=== PATIENT | male | born 1965 | race Caucasian/White ===

== ENCOUNTER 2016-08-09 04:12 | Emergency (ER) | payer BC ==
--- NOTE | 2016-08-09 04:49 | ED Physician Chart ---
Chief Complaint/HPI - Patient Information Date Seen:: 08/09/16 Time Seen:: 04:44 Chief Complaint:: back pain, ALLISON History of Present Illness:: pt says he has had a ALLISON x 3 days. constant and usually gets when he is dehydrated but today drinking h2o has been no relief. he tried excedrin w no relief. is concerned about the pain is severe. no weak/ numb in limbs. no change in cn. pt is on a monthly rx of ultram but has run out 1week ago. he does not freely volunteer this info until i specificallly ask. also pt c/o a pain in rt low back. hurts to move/bend. pt says pain is the same as in past when his GB was giving him pain. GB had to be stented in past ( he thinks but details are somewhat vague). pt says he was told by [address] that he should have GB removal sx in 12/21 but his pmd disagreed and no sx was done. Pt 's PMD disagreed w sx since there was no evidence of gallstones. no abd pain. no n/v/d. no constipation. no fever. pt has been unable to sleep recently but he's not sure why. had some feeling of hrt was racing earlier tonight. no cp. no sob. no skipping beats or irregular hr. no weakness, no CP. no near syncope. pt drove himself to ED but says his son lives nearby and can come in prn. Allergies:: Allergies Allergy/AdvReac Type Severity Reaction Status Date / Time morphine Allergy HIVES Verified 09/17/15 02:25 Vitals:: Vital Signs - 8 hr 08/09/16 04:20 Temp 98.0 F HR 85 RR 19 BP 159/92 O2 Sat % 96 Historian:: Patient Review of Systems - Review of Systems General/Constitutional: No fever, No chills, No weight loss, No weakness, No diaphoresis, No edema, No loss of appetite Skin: No skin lesions, No rash, No bruising Head: Headache, No light-headedness Eyes: No loss of vision, No pain, No diplopia ENT: No earache, No nasal drainage, No sore throat, No tinnitus Neck: No neck pain, No swelling, No thyromegaly, No stiffness, No mass noted Cardio Vascular: No chest pain, No palpitations, No PND, No orthopnea, No edema Pulmonary: No SOB, No cough, No sputum, No wheezing GI: No nausea, No vomiting, No diarrhea, No pain, No melena, No hematochezia, No constipation, No hematemesis G/U: No dysuria, No frequency, No hematuria Musculoskeletal: No bone or joint pain, No back pain, No muscle pain Endocrine: No polyuria, No polydipsia Psychiatric: No prior psych history, No depression, No anxiety, No suicidal ideation Hematopoietic: No bruising, No lymphadenopathy Allergic/Immuno: No urticaria, No angioedema Neurological: No syncope, No focal symptoms, No weakness, No paresthesia, No headache, No seizure, No dizziness, No confusion, No vertigo Past Medical History - Past Medical History Past Medical History: HTN, Other (gb stent (no stones), diverticulitis w sx hx and prior colonostomy /w reversal) Social History: Non Smoker, No Alcohol Medication: Reviewed Family Medical History - Family Member Mother History Unknown: Yes Physical Exam - Physical Examination General/Constitutional: Awake, Well-developed, well-nourished, Alert, No distress, GCS 15, Non-toxic appearing, Ambulatory Head: Atraumatic Eyes: Lids, conjuctiva normal, PERRL, EOMI Skin: Nl inspection, No rash, No skin lesions, No ecchymosis, Well hydrated, No lymphadenopathy ENMT: External ears, nose nl, TM canals nl, Nasal exam nl, Lips, teeth, gums nl , Oropharynx nl, Tonsils nl Neck: Nontender, Full ROM w/o pain, No JVD, No nuchal rigidity, No bruit, No mass, No stridor Respiratory: Nl effort/Exclusion, Clear to Auscultation, No Wheeze/Rhonchi/Rales Cardio Vascular: RRR, No murmur, gallop, rubs, NL S1 S2 GI: No tenderness/rebounding/guarding, No organomegaly, No hernia, Normal BS's, Nondistended, No mass/bruits, No McBurney tenderness Other GI comments:: nontnd w much diffuse post sx scars (old) : No CVA tenderness Extremities: No tenderness or effusion, Full ROM, normal strength in all extremities, No edema, Normal digits & nails Neuro/Psych: Alert/oriented, DTR's symmetric, Normal sensory exam, Normal motor strength, Judgement/insight normal, Mood normal, Normal gait, No focal deficits Misc: No paraspinal tenderness Other Misc comments:: back tndr low rt side. ok rom. neck supple. no neuro defecits Labs/Radiology/EKG Results - Lab Results Results: Laboratory Tests 08/09/16 08/09/16 08/09/16 04:55 04:55 05:10 WBC 7.0 RBC 5.27 Hgb 15.2 Hct 44.7 MCV 84.8 MCH 28.8 MCHC Differential 33.9 RDW 12.1 Plt Count 286 MPV 6.8 Neutrophils % 65.0 Lymphocytes % 25.5 Monocytes % 7.1 Eosinophils % 1.5 Basophils % 0.9 Sodium Potassium Chloride Carbon Dioxide Anion Gap BUN Creatinine Est GFR ( Amer) Est GFR (Non-Af Amer) BUN/Creatinine Ratio Glucose Calcium Total Bilirubin AST ALT Alkaline Phosphatase Troponin I Total Protein Albumin Globulin Albumin/Globulin Ratio Urine Source CLEAN C Urine Color YELLOW Urine Clarity CLEAR Urine pH 6.0 Ur Specific [place] 1.020 Urine Protein NEGATIVE Urine Glucose (UA) NEGATIVE Urine Ketones NEGATIVE Urine Blood NEGATIVE Urine Nitrate NEGATIVE Urine Bilirubin NEGATIVE Urine Urobilinogen 0.2 Ur Leukocyte Esterase NEGATIVE Urine RBC NONE SEEN Urine WBC NONE SEEN Ur Epithelial Cells NONE SEEN Urine Bacteria FEW Urine Opiates Screen NEGATIVE Urine Methadone Screen NEGATIVE Ur Barbiturates Screen NEGATIVE Ur Tricyclics Screen NEGATIVE Ur Phencyclidine Scrn NEGATIVE Amphetamines Screen NEGATIVE U Methamphetamines Scrn NEGATIVE U Benzodiazepines Scrn NEGATIVE U Cocaine Metab Screen NEGATIVE U Cannabinoids Screen NEGATIVE Ethyl Alcohol 08/09/16 08/09/16 05:10 05:10 WBC RBC Hgb Hct MCV MCH MCHC Differential RDW Plt Count MPV Neutrophils % Lymphocytes % Monocytes % Eosinophils % Basophils % Sodium 136 Potassium 4.0 Chloride 110 H Carbon Dioxide 22.8 Anion Gap 7.2 BUN 14 Creatinine 0.7 Est GFR ( Amer) > 60.0 Est GFR (Non-Af Amer) > 60.0 BUN/Creatinine Ratio 20.0 Glucose 147 H Calcium 9.5 Total Bilirubin 0.4 AST 13 ALT 20 Alkaline Phosphatase 83 Troponin I < 0.01 L Total Protein 7.1 Albumin 4.1 L Globulin 3.0 Albumin/Globulin Ratio 1.4 Urine Source Urine Color Urine Clarity Urine pH Ur Specific [place] Urine Protein Urine Glucose (UA) Urine Ketones Urine Blood Urine Nitrate Urine Bilirubin Urine Urobilinogen Ur Leukocyte Esterase Urine RBC Urine WBC Ur Epithelial Cells Urine Bacteria Urine Opiates Screen Urine Methadone Screen Ur Barbiturates Screen Ur Tricyclics Screen Ur Phencyclidine Scrn Amphetamines Screen U Methamphetamines Scrn U Benzodiazepines Scrn U Cocaine Metab Screen U Cannabinoids Screen Ethyl Alcohol < 10 - Radiology Results Results: ct l-spine no fx. no sublux. no neural foramen encroachment nor spinal stenosis - EKG Interpretations EKG Time:: 04:30 Rate & Rhythm: nsr, wnl [place]: -7 Intervals: nrml st's/t's Comments:: wn ED Septic Shock - . Is Septic Shock (SBP<90, OR Lactate>4 mmol\L) present?: No - <6hrs of presentation: Vital Signs: Vital Signs - 8 hr /06/21 04:20 Temp 98.0 F HR 85 RR 19 BP 159/92 O2 Sat % 96 Reassessment (Disposition) - Reassessment Reassessment:: pt resting comfortably. labs ok. ct L spine is ok but remainder of CTs pending. will sign out to [facility] ED Dr at 7am unless results received by then. Reassessment Condition:: Improved - Diagnosis Diagnosis:: 1 headache 2 back pain - exacerbation of chronic.. - Aftercare/Follow up Instructions Aftercare/Follow-Up Instructions:: Counseled pt regarding lab results/diagnosis & need follow up Notes:: advise pt f/u w dr cardona today for further chronic pain med rx's and advice. return if worse. - Patient Disposition Discharge/Transfer:: Home Condition at Disposition:: Improved
[2016-08-09] MEDS ORDERED: Sodium Chloride 0.9% 1,000 ML IV ONE (04:55)
[2016-08-09] MEDS ORDERED: HYDROmorphone 1 mg/mL 1mL Syr IVP STA (05:09)
[2016-08-09 05:20] LABS: % BASOPHILS 0.9 % (0.0-2.0); % EOSINOPHILS 1.5 % (0.0-5.0); % LYMPHOCYTES 25.5 % (20.0-50.0); % MONOCYTES 7.1 % (2.0-10.0); HEMATOCRIT 44.7 % (39.0-49.0); HEMOGLOBIN 15.2 gm/dL (13.2-17.3); MEAN CELL VOLUME 84.8 fl (80-99); MEAN CORPUSCULAR HEMOGLOBIN 28.8 pg (26.0-30.0); MEAN CORPUSCULAR HGB CONC 33.9 pg (28.0-36.0); MEAN PLATELET VOLUME 6.8 fl; NEUTROPHILE ABSOLUTE 4.5 Th/cmm (1.8-8.0); PLATELET COUNT 286 Th/cmm (150-400); RED BLOOD COUNT 5.27 Mil/cmm (4.30-5.70); RED CELL DISTRIBUTION WIDTH 12.1 % (11.5-20.0)
[2016-08-09 05:32] LABS: URINE BILIRUBIN NEGATIVE (NEGATIVE); URINE BLOOD NEGATIVE (NEGATIVE); URINE COLOR YELLOW; URINE GLUCOSE (UA) NEGATIVE (NEGATIVE); URINE KETONE NEGATIVE (NEGATIVE); URINE PROTEIN NEGATIVE (NEGATIVE); URINE UROBILINOGEN 0.2 E.U./dL (0.2 - 1.0)
[2016-08-09 05:33] LABS: AMPHETAMINE URINE NEGATIVE (NEGATIVE); BARBITURATES URINE NEGATIVE (NEGATIVE); METHADONE URINE NEGATIVE (NEGATIVE); URINE BACTERIA FEW /hpf (NONE SEEN); URINE EPITHELIAL CELLS NONE SEEN /lpf (FEW); URINE RBC NONE SEEN /hpf (0-5); URINE WBC NONE SEEN /hpf (0-5)
[2016-08-09 05:37] LABS: ALB/GLOB RATIO 1.4 (1.0-1.8); ALKALINE PHOSPHATASE 83 U/L (34-104); ANION GAP 7.2 (7.0-16.0); BILIRUBIN,TOTAL 0.4 mg/dL (0.3-1.0); BUN - UREA NITROGEN 14 mg/dL (7-25); CALCIUM SERUM 9.5 mg/dL (8.6-10.3); CARBON DIOXIDE 22.8 mEq/L (21.0-31.0); CHLORIDE 110 mEq/L (98-107); CREATININE - SERUM 0.7 mg/dL (0.7-1.3); GLUCOSE 147 mg/dL (70-105); SGOT 13 U/L (13-39); SGPT/ALT 20 U/L (7-52); SODIUM SERUM 136 mEq/L (136-145)
--- NOTE | 2016-08-09 10:27 | Diagnostic Imaging Report ---
Head CT without intravenous contrast Indication: Headache for 3 days Comparison: None Technique: Axial images were obtained from the vertex to the skull base without IV contrast. Coronal reconstructions were made. Total DLP: 725, CTDI38 FINDINGS: Images of the brain obtained without contrast demonstrate no acute hemorrhage. No mass lesions identified. The ventricles and basal cisterns are patent. The gordon-white matter differentiation is preserved. There is no mass effect or midline shift. No skull fractures identified. No soft tissue swelling. The paranasal sinuses are clear. IMPRESSION: No acute intracranial abnormality.
--- NOTE | 2016-08-09 10:31 | Diagnostic Imaging Report ---
CT lumbar spine without IV contrast HISTORY: Back pain COMPARISON: CT lumbar spine on 09/03/[address] abdomen and pelvis was performed in multiple planes. Total DLP 959, CTD I 38.7 Findings: Images of the lumbar spine obtained without contrast demonstrate no evidence of an acute fracture or subluxation. Rudimentary ribs are seen at L1. Mild degenerative changes are noted. There is a 3 mm protrusion at L5/S1 asymmetric to the left causing mild left spinal canal and mild left neural foraminal narrowing and touching the adjacent nerve roots. There is a 2 to 3 mm broad-based disc bulge at L4/L5 causing mild spinal canal narrowing. Degenerative changes of SI joints are noted. IMPRESSION: No evidence of an acute fracture or subluxation Degenerative changes greatest in the lower lumbar spine with a 3 mm asymmetric leftward protrusion at L5/S1 indenting the thecal sac and causing mild left spinal canal and left neural foraminal narrowing. If indicated short-term follow-up MRI may also be obtained for further assessment.
--- NOTE | 2016-08-09 11:02 | Diagnostic Imaging Report ---
CT abdomen and pelvis without intravenous contrast Indication: Abdominal pain] and back pain Comparison: CT lumbar spine performed the same day, Technique: Axial images were obtained from the lung bases to the bilateral proximal femurs without IV contrast. Coronal reconstructions were made. total DLP: 681, CTDI14.3 FINDINGS: Exam is limited due to motion. Atelectatic changes of the lung bases are seen. Subcentimeter low-density lesions of the liver are noted, too small to characterize. There is elevation of right hemidiaphragm. No radiopaque gallstones identified. No focal splenic lesions. Pancreatic gland atrophy is noted with no evidence of focal lesions. No focal adrenal lesions. No evidence of hydronephrosis or focal renal lesions. Mild nonspecific perinephric inflammatory changes are noted. Punctate prostate gland calcifications are noted. Copious stool is seen throughout the colon. There is evidence of previous anterior abdominal wall mesh hernia repair. There is diastases of the rectus abdominal muscles inferior to the mesh with close apposition of bowel loops along the anterior bowel wall. There is a focal small narrow based ventral hernia just to the left of the mesh containing small bowel without evidence of obstruction or strangulation at this time. There are also additional 2 focal small ventral hernias with partially herniated loops of small bowel to the right of the ventral hernia one adjacent and one inferior to the ventral hernia. No appendicitis. No evidence of free fluid or free air. Postsurgical changes of the left colon are noted. Mild degenerative changes spine are noted. IMPRESSION: Evidence of previous anterior abdominal wall mesh repair. There is generalized diastases of the rectus abdominis muscles. There is a focal narrow base hernia seen to the left of the ventral hernia containing small bowel loop without evidence of obstruction at this time, however, follow-up is recommended. There are also 2 additional focal ventral hernias with partial herniation of bowel loops one located just to the right of the mesh and one located inferior and to the right of the mesh with partial herniation of bowel loops without evidence of obstruction at this time. Copious stool throughout the colon with posterior surgical changes of the descending colon. No evidence of hydronephrosis
== END 2016-08-09 07:15 | disposition home or self-care (01) ==
LOC: ER 04:12
DX: R51 Headache (principal); M54.5 Low back pain; I10 Essential (primary) hypertension; Z88.6 Allergy status to analgesic agent
CPT/HCPCS: 36415-UA; 70450-TC; 72131-TC; 80053-TC; 80307; 80320-TC; 81001-TC; 84484-TC; 85025-TC; 93005; 96374; 96375; J1170; J2405; J7030

== ENCOUNTER 2017-05-25 15:55 | Emergency (ER) | payer BC ==
[2017-05-25] MEDS ORDERED: metroNIDAZOLE 500mg/NS 100mL 500 MG/100 ML BAG IV ONE ×2 (16:15→16:40)
[2017-05-25 16:29] LABS: % BASOPHILS 1.1 % (0.0-2.0); % EOSINOPHILS 1.2 % (0.0-5.0); % LYMPHOCYTES 23.2 % (20.0-50.0); % MONOCYTES 6.7 % (2.0-10.0); % NEUTROPHILS 67.8 % (40.0-80.0); BASOPHILE ABSOLUTE 0.1 Th/cumm (0-0.2); EOSINOPHILE ABSOLUTE 0.1 Th/cmm (0.1-0.4); HEMATOCRIT 41.3 % (41.0-60); HEMOGLOBIN 14.2 gm/dL (12-16); LYMPHOCYTE ABSOLUTE 1.8 Th/cmm (1.5-3.0); MEAN CELL VOLUME 82.9 fl (80-99); MEAN CORPUSCULAR HEMOGLOBIN 28.5 pg (26.0-30.0); MEAN CORPUSCULAR HGB CONC 34.3 pg (28.0-36.0); MEAN PLATELET VOLUME 6.5 fl; MONOCYTE ABSOLUTE 0.5 Th/cmm (0.3-1.0); NEUTROPHILE ABSOLUTE 5.2 Th/cmm (1.8-8.0); PLATELET COUNT 327 Th/cmm (150-400); RED BLOOD COUNT 4.99 Mil/cmm (4.30-5.70); RED CELL DISTRIBUTION WIDTH 12.2 % (11.5-20.0); WHITE BLOOD COUNT 7.7 Th/cmm (4.8-10.8)
[2017-05-25 16:37] LABS: ALB/GLOB RATIO 1.6 (1.0-1.8); ALBUMIN 4.4 gm/dL (4.2-5.5); ALKALINE PHOSPHATASE 68 U/L (34-104); ANION GAP 10.8 (7.0-16.0); BILIRUBIN,TOTAL 0.5 mg/dL (0.3-1.0); BUN - UREA NITROGEN 14 mg/dL (7-25); CALCIUM SERUM 9.3 mg/dL (8.6-10.3); CARBON DIOXIDE 24.9 mEq/L (21.0-31.0); CHLORIDE 104 mEq/L (98-107); CREATININE - SERUM 0.7 mg/dL (0.7-1.3); GFR AFRICAN-AMERICAN > 60.0 ml/min (>90); GFR NON AFRICAN-AMERICAN > 60.0 ml/min; GLUCOSE 130 mg/dL (70-105); POTASSIUM SERUM 3.7 mEq/L (3.5-5.1); SGOT 17 U/L (13-39); SGPT/ALT 22 U/L (7-52); SODIUM SERUM 136 mEq/L (136-145); TOTAL PROTEIN,SERUM 7.2 gm/dL (6.0-8.3)
[2017-05-25 16:44] LABS: CHOLESTEROL 144 mg/dL (<200); HDL -HIGH DENSITY LIPOPROTEIN 26 mg/dL (23-92); TRIGLYCERIDES 333 mg/dL (<150)
[2017-05-25] MEDS ORDERED: cefTRIAXone 1 GM in Sodium Chloride 0.9% 50 ML IV ONE (16:45)
--- NOTE | 2017-05-25 17:57 | ER Physician Documentation ---
DATE OF SERVICE: 05/25/2017 EMERGENCY ROOM EVALUATION AND TREATMENT The patient states that he started having rectal pain since this morning. He came to the Emergency Room, was placed on bed #3. Triage was done by Lucio. The patient states that he has this pain until now. He went to his doctor, the doctor sent him over here to be checked it out. The patient does not have any hemorrhoids. No bleeding problems. The patient has a history of diverticulitis. HISTORY OF PRESENT ILLNESS: The patient is known to have diverticulitis and now he said he had some pain on the left side of the colonic area also and now it went down to the colonic area also. He is single, but he has 4 children. The patient does not have any other symptoms. No nausea or vomiting. No other medical problems. No bleeding, no vomiting of blood. REVIEW OF SYSTEMS: EYES: No history of double vision, blurring, blindness. CENTRAL NERVOUS SYSTEM: No history of TIA, stroke, encephalitis, meningitis. PULMONARY: No history of pneumonia, TB pulmonary embolism. CARDIAC: No history of any chest pain, myocardial infarction, rheumatic fever. The patient is moderately obese patient. Weighing 210 pounds. A 12-point review of systems was reviewed and essentially normal, negative costovertebral angles, no pain. Abdomen sweet, the patient has no nausea or vomiting. No history of GERD. No history of taking any alcoholic beverages, not taking any medications of any drugs that he takes. He has a history of diverticulitis. He was operated once many years ago for diverticulitis. Review of systems essentially, that I mentioned earlier there earlier, lung sweet, the patient has no pneumonia, TB, pulmonary embolism. Heart sweet, no history of any angina pectoris, myocardial infarction, rheumatic fever, valvular heart disease, pericardial disease. Abdomen sweet, no history of any GI problems other than diverticulitis. No history of any Crohn's disease. The patient is a single. The patient has 4 sons. Two of them live with him. The patient's costovertebral angle essentially seems to be within normal limits. PHYSICAL EXAMINATION: VITAL SIGNS: Temperature of 98.3, pulse of 83, respirations 16, blood pressure 148/84, saturations 95. Height is 5 feet 7 inches, weight 210 pounds. The patient is up-to-date with his tetanus and other drugs. The patient's height is 5 feet 7 inches, weighing 210 pounds. Temperature 98.8, pulse 83. So, a 12-point review of system is essentially negative. GENERAL EXAM: Is otherwise benign and negative. CHEST: Clear. Trachea being central. Fairly good air entry in both lungs. HEART: Reveals normal heart sounds. No fourth heart sounds. Second heart sounds physiologically split. Third heart sound is absent. ABDOMEN: Soft, benign and negative. CENTRAL NERVOUS SYSTEM: Within normal limits. CLINICAL IMPRESSION: Most likely the patient may be having some diverticulitis or it maybe affecting some part of the rectal area, so the patient will be given some Flagyl, Toradol and patient will be given Rocephin and some lab workup would be done. The patient has been taking [place]; on an average he takes 10 pills a week and he has been taking this for quite some time. He is allergic to MORPHINE and Dilaudid is not available, most likely he may be wanting to get some [place] today on Sunday and it is very, very likely that he may be addicted to [place]. But we will check lab work. The patient will be given Flagyl. The patient is given some dose of Toradol and Rocephin and labs is done. Once everything is available the patient most likely will be sent home. JOB# [id number]
--- NOTE | 2017-05-25 17:57 | ER Physician Documentation ---
DATE OF SERVICE: ADDENDUM A 51-year-old male patient. Full code patient. LABORATORY DATA: White count is 7.7, hemoglobin is 14.2. The patient seems to be a little better. Platelet count is 327,000. Electrolytes, etc. appears to be normal. Potassium is 3.7, BUN is 14, creatinine 0.7, glucose is 130 and that is a random sample. AST, ALT are essentially within normal limits. Triglycerides is 333, that is a little high. We will advise him to eat low fat diet and then to check up his cholesterol in about a month's time and then if it is high, the patient may need some medication to bring the cholesterol level down. LDL is 87, HDL is 26. FINAL DIAGNOSES: Abdominal pain, rectal pain, possible diverticulitis, may be some kind of colitis, also affecting down the rectal anal area. The patient is sent home on Flagyl 500 mg 3 times a day for 5 days, Keflex 500 mg p.o. 4 times a day for 5 days . No other medication needs to be taken. The patient is to take low cholesterol, low saturated fat diet. In a month's time, repeat checking of triglycerides need to be done. He is overweight. His weight is 210. He has to come down to 200 and then check up the lipid profile level and then depending on that, the medication Tricor might be needing to be given 145 mg once a day. JOB# [id number]
== END 2017-05-25 17:35 | disposition home or self-care (01) ==
LOC: ER 15:55
DX: K62.89 Other specified diseases of anus and rectum (principal)
CPT/HCPCS: 99284; 96365; 96368; 96372; 84484; 36415; 85025; 83735; 80053; 80061; J1885; J0696; 90799; Z7502

== ENCOUNTER 2018-05-25 01:02 | Emergency (ER) | payer BC ==
[2018-05-25] MEDS ORDERED: Sodium Chloride 0.9% 1,000 ML IV ONE (01:57)
[2018-05-25] MEDS ORDERED: HYDROmorphone 1 mg/mL 1mL Syr IVP STA ×2 (01:58→05:00)
--- NOTE | 2018-05-25 02:07 | ED Physician Chart ---
ED Chief Complaint/HPI - Patient Information Date Seen:: 05/25/18 Time Seen:: 01:50 Chief Complaint:: diffuse abdominal pain History of Present Illness:: Patient developed diffuse abdominal pain at 8 PM last night. He is nauseated and vomited once in the waiting room. No diarrhea. Allergies:: Allergies Allergy/AdvReac Type Severity Reaction Status Date / Time morphine Allergy HIVES Verified 09/17/15 02:25 Vitals:: Vital Signs - 8 hr 05/25/18 01:11 Temp 97.8 F HR 75 RR 17 BP 143/85 O2 Sat % 98 Historian:: Patient Review:: Nurse's Note Reviewed ED Review of Systems - Review of Systems General/Constitutional: No fever, No chills, No weight loss, No weakness, No diaphoresis, No edema, No loss of appetite Skin: No skin lesions, No rash, No bruising Head: No headache, No light-headedness Eyes: No loss of vision, No pain, No diplopia ENT: No earache, No nasal drainage, No sore throat, No tinnitus Neck: No neck pain, No swelling, No thyromegaly, No stiffness, No mass noted Cardio Vascular: No chest pain, No palpitations, No PND, No orthopnea, No edema Pulmonary: No SOB, No cough, No sputum, No wheezing GI: Nausea, Vomiting, No diarrhea, Pain, No melena, No hematochezia, No constipation, No hematemesis G/U: No dysuria, No frequency, No hematuria Musculoskeletal: No bone or joint pain, No back pain, No muscle pain Endocrine: No polyuria, No polydipsia Psychiatric: No prior psych history, No depression, No anxiety, No suicidal ideation Hematopoietic: No bruising, No lymphadenopathy Allergic/Immuno: No urticaria, No angioedema Neurological: No syncope, No focal symptoms, No weakness, No paresthesia, No headache, No seizure, No dizziness, No confusion, No vertigo ED Past Medical History - Past Medical History Past Medical History: Other (diverticulitis) Family History: None Social History: Non Smoker, No Alcohol Surgical History: other (patient had a colostomy for diverticulitis in 2010 with a colostomy reversal; ventral hernia repair) Psychiatricy History: None Medication: Reviewed Family Medical History - Family Member Mother History Unknown: Yes ED Physical Exam - Physical Examination General/Constitutional: Well-developed, well-nourished, Alert Other Gen/Cons comments:: Mild to moderate distress Head: Atraumatic Eyes: Lids, conjuctiva normal, PERRL Skin: Nl inspection, No rash, No skin lesions, No ecchymosis ENMT: External ears, nose nl, Lips, teeth, gums nl Neck: No nuchal rigidity Respiratory: Nl effort/Exclusion, Clear to Auscultation, No Wheeze/Rhonchi/Rales Cardio Vascular: RRR GI: No mass/bruits Other GI comments:: Bowel sounds decreased; there is diffuse abdominal tenderness with rebound tenderness Extremities: Normal digits & nails Neuro/Psych: No focal deficits ED Labs/Radiology/EKG Results - Lab Results Results: Laboratory Results WBC 10.9 Th/cmm (4.8-10.8) H 05/25/18 02:05 RBC 5.38 Mil/cmm (4.30-5.70) 05/25/18 02:05 Hgb 15.6 gm/dL (12-16) 05/25/18 02:05 Hct 46.2 % (41.0-60) 05/25/18 02:05 MCV 86.0 fl (80-99) 05/25/18 02:05 MCH 29.0 pg (26.0-30.0) 05/25/18 02:05 MCHC Differential 33.8 pg (28.0-36.0) 05/25/18 02:05 RDW 12.6 % (11.5-20.0) 05/25/18 02:05 Plt Count 316 Th/cmm (150-400) 05/25/18 02:05 MPV 6.4 fl 05/25/18 02:05 Neutrophils % 79.2 % (40.0-80.0) 05/25/18 02:05 Lymphocytes % 15.2 % (20.0-50.0) L 05/25/18 02:05 Monocytes % 4.6 % (2.0-10.0) 05/25/18 02:05 Eosinophils % 0.8 % (0.0-5.0) 05/25/18 02:05 Basophils % 0.2 % (0.0-2.0) 05/25/18 02:05 Sodium 134 mEq/L (136-145) L 05/25/18 02:05 Potassium 3.8 mEq/L (3.5-5.1) 05/25/18 02:05 Chloride 100 mEq/L (98-107) 05/25/18 02:05 Carbon Dioxide 21.4 mEq/L (21.0-31.0) 05/25/18 02:05 Anion Gap 16.4 (7.0-16.0) H 05/25/18 02:05 BUN 16 mg/dL (7-25) 05/25/18 02:05 Creatinine 0.7 mg/dL (0.7-1.3) 05/25/18 02:05 Est GFR ( Amer) > 60.0 ml/min (>90) 05/25/18 02:05 Est GFR (Non-Af Amer) > 60.0 ml/min 05/25/18 02:05 BUN/Creatinine Ratio 22.9 05/25/18 02:05 Glucose 143 mg/dL (70-105) H 05/25/18 02:05 Calcium 9.3 mg/dL (8.6-10.3) 05/25/18 02:05 Magnesium 2.0 mg/dL (1.9-2.7) 05/25/18 02:05 Lipase 13 U/L (11-82) 05/25/18 02:05 Urine Source MID[place] 05/25/18 01:15 Urine Color YELLOW 05/25/18 01:15 Urine Clarity CLEAR (CLEAR) 05/25/18 01:15 Urine pH 5.5 (4.6 - 8.0) 05/25/18 01:15 Ur Specific [place] 1.020 (1.005-1.030) 05/25/18 01:15 Urine Protein NEGATIVE mg/dL (NEGATIVE) 05/25/18 01:15 Urine Glucose (UA) NEGATIVE mg/dL (NEGATIVE) 05/25/18 01:15 Urine Ketones NEGATIVE mg/dL (NEGATIVE) 05/25/18 01:15 Urine Blood NEGATIVE (NEGATIVE) 05/25/18 01:15 Urine Nitrate NEGATIVE (NEGATIVE) 05/25/18 01:15 Urine Bilirubin NEGATIVE (NEGATIVE) 05/25/18 01:15 Urine Urobilinogen 0.2 E.U./dL (0.2 - 1.0) 05/25/18 01:15 Ur Leukocyte Esterase NEGATIVE (NEGATIVE) 05/25/18 01:15 Urine RBC NONE SEEN /hpf (0-5) 05/25/18 01:15 Urine WBC 0-2 /hpf (0-5) 05/25/18 01:15 Ur Epithelial Cells NONE SEEN /lpf (FEW) 05/25/18 01:15 Urine Bacteria FEW /hpf (NONE SEEN) 05/25/18 01:15 - Radiology Results Results: CT abdomen and pelvis shows small bowel obstruction - EKG Interpretations Rate & Rhythm: normal sinus rhythm with a rate of 73 [place]: normal ED Septic Shock - . Is Septic Shock (SBP<90, OR Lactate>4 mmol\L) present?: No - <6hrs of presentation: Vital Signs: Vital Signs - 8 hr 05/25/18 01:11 Temp 97.8 F HR 75 RR 17 BP 143/85 O2 Sat % 98 ED Reassessment (Disposition) - Reassessment Reassessment Condition:: Improved - Diagnosis Diagnosis:: Small bowel obstruction - Patient Disposition Discharge/Transfer:: Acute Care (other hosp) Spoke to:: Dr. Merida Condition at Disposition:: Stable, Unchanged
[2018-05-25 02:11] LABS: % BASOPHILS 0.2 % (0.0-2.0); % EOSINOPHILS 0.8 % (0.0-5.0); % LYMPHOCYTES 15.2 % (20.0-50.0); % MONOCYTES 4.6 % (2.0-10.0); % NEUTROPHILS 79.2 % (40.0-80.0); EOSINOPHILE ABSOLUTE 0.1 Th/cmm (0.1-0.4); HEMATOCRIT 46.2 % (41.0-60); HEMOGLOBIN 15.6 gm/dL (12-16); LYMPHOCYTE ABSOLUTE 1.7 Th/cmm (1.5-3.0); MEAN CORPUSCULAR HGB CONC 33.8 pg (28.0-36.0); MEAN PLATELET VOLUME 6.4 fl; MONOCYTE ABSOLUTE 0.5 Th/cmm (0.3-1.0); NEUTROPHILE ABSOLUTE 8.6 Th/cmm (1.8-8.0); PLATELET COUNT 316 Th/cmm (150-400); RED BLOOD COUNT 5.38 Mil/cmm (4.30-5.70); RED CELL DISTRIBUTION WIDTH 12.6 % (11.5-20.0); WHITE BLOOD COUNT 10.9 Th/cmm (4.8-10.8)
[2018-05-25] MEDS ORDERED: HYDROmorphone 1 mg/mL 1mL Syr ONE ×2 (02:19→05:03)
[2018-05-25 02:27] LABS: ANION GAP 16.4 (7.0-16.0); BUN - UREA NITROGEN 16 mg/dL (7-25); CALCIUM SERUM 9.3 mg/dL (8.6-10.3); CARBON DIOXIDE 21.4 mEq/L (21.0-31.0); CHLORIDE 100 mEq/L (98-107); CREATININE - SERUM 0.7 mg/dL (0.7-1.3); GFR AFRICAN-AMERICAN > 60.0 ml/min (>90); GFR NON AFRICAN-AMERICAN > 60.0 ml/min; GLUCOSE 143 mg/dL (70-105); LIPASE 13 U/L (11-82); POTASSIUM SERUM 3.8 mEq/L (3.5-5.1); SODIUM SERUM 134 mEq/L (136-145)
[2018-05-25 02:36] LABS: URINE SOURCE MIDSTREAM
[2018-05-25 02:37] LABS: URINE BILIRUBIN NEGATIVE (NEGATIVE); URINE BLOOD NEGATIVE (NEGATIVE); URINE GLUCOSE (UA) NEGATIVE (NEGATIVE); URINE KETONE NEGATIVE (NEGATIVE); URINE LEUKOCYTE ESTERASE NEGATIVE (NEGATIVE); URINE NITRATE NEGATIVE (NEGATIVE); URINE PH 5.5 (4.6 - 8.0); URINE PROTEIN NEGATIVE (NEGATIVE); URINE UROBILINOGEN 0.2 E.U./dL (0.2 - 1.0)
[2018-05-25 02:52] LABS: URINE BACTERIA FEW /hpf (NONE SEEN); URINE CLARITY CLEAR (CLEAR); URINE COLOR YELLOW; URINE EPITHELIAL CELLS NONE SEEN /lpf (FEW); URINE MICROSCOPIC INDICATED? YES; URINE RBC NONE SEEN /hpf (0-5); URINE WBC 0-2 /hpf (0-5)
--- NOTE | 2018-05-25 09:01 | Diagnostic Imaging Report ---
Exam: CT examination abdomen pelvis. HISTORY: Abdominal pain Total DLP equals 839 CTDI equals 16.9 Findings: Multiple contiguous thin section of the abdomen pelvis obtained from a lower thorax to pubic symphysis without the administration of oral or intravenous contrast material The study was correlated exam of 08/09/2016 The study demonstrates normal aeration of lung parenchyma the bases. Small liver cyst is noted. The spleen is intact. The stomach distended with food content. The gallbladder is distended. The kidneys demonstrate no evidence of obstructive uropathy or nephrolithiasis. The visualized the pancreas is intact. No free fluid is noted. There is evidence for distention of small bowel loops suggestive of ileus or early small bowel obstruction cannot be excluded. Postoperative changes with adhesions are noted the anterior abdominal wall. There is evidence for small left lower anterior abdomen abdominal hernia with small bowel loops with most likely partial strangulation. IMPRESSION: Distended gallbladder Distended small bowel loops in lower abdomen suggestive of early ileus versus early obstruction. Postoperative changes anterior abdominal wall with adhesions. Left lower quadrant postoperative changes in the colon. Left lower anterior abdominal hernia containing small bowel loops question of partial strangulation. The urinary bladder is intact.
== END 2018-05-25 06:45 | disposition short-term general hospital (02) ==
LOC: ER 01:02
DX: K56.699 Other intestinal obstruction unspecified as to partial versus complete obstruction (principal); Z88.5 Allergy status to narcotic agent
CPT/HCPCS: 99284; 96374; 96375; 96376; 93005; 74176; 36415; 85025; 81001; 83690; 83735; 80048; J2405; J1170; J7030